=== PATIENT | male | born 1930 | race Caucasian/White ===

== ENCOUNTER → 2017-06-23 | Outpatient (CLI) | payer OTHER ==
--- NOTE | 2017-06-23 17:33 | PCVCIMAG ---
EXAM: BILATERAL LOWER EXTREMITY ARTERIAL DUPLEX INDICATION: Peripheral Arterial Disease. Leg pain. FINDINGS: Right Leg: Satisfactory arterial waveforms throughout the common/profunda/superficial femoral, popliteal, anterior tibial, peroneal, and posterior tibial arteries. No flow limiting stenosis seen. Left Leg: Satisfactory arterial waveforms in the common femoral and profunda femoral artery. 40% stenosis distal superficial femoral artery. Previous stent mid popliteal artery remains patent. Occlusion of the distal anterior and posterior tibial arteries. The peroneal artery is patent. IMPRESSION: No flow limiting stenosis in the right lower extremity. 40% stenosis distal left superficial femoral artery is not felt to be flow-limiting. Occlusion of the distal left anterior and posterior tibial arteries. Previous left popliteal stent maintaining adequate patency. LOC:[id number]
== END | disposition home or self-care (01) ==
LOC: PCVCIMAG 11:45
PROVIDERS: ATTEND Internal Medicine Cardiovascular Disease
DX: I73.9 Peripheral vascular disease, unspecified (principal); I10 Essential (primary) hypertension; I08.0 Rheumatic disorders of both mitral and aortic valves; E78.00 Pure hypercholesterolemia, unspecified; R94.31 Abnormal electrocardiogram [ECG] [EKG]; L98.499 Non-pressure chronic ulcer of skin of other sites with unspecified severity; L97.929 Non-pressure chronic ulcer of unspecified part of left lower leg with unspecified severity; Z87.891 Personal history of nicotine dependence; Z79.899 Other long term (current) drug therapy
CPT/HCPCS: 93005; 93925; G0463

== ENCOUNTER → 2017-11-25 | Outpatient (CLI) | payer OTHER | END | disposition home or self-care (01) | LOC: PCVCIMAG 15:33 | DX: I08.3 Combined rheumatic disorders of mitral, aortic and tricuspid valves (principal); I25.10 Atherosclerotic heart disease of native coronary artery without angina pectoris; I10 Essential (primary) hypertension | CPT/HCPCS: 93306 ==

== ENCOUNTER → 2018-04-08 | Outpatient (CLI) | payer OTHER ==
--- NOTE | 2018-04-08 11:26 | PCVCIMAG ---
EXAM: AORTOILIAC DUPLEX INDICATION: Peripheral arterial disease FINDINGS: AORTA: Suprarenal aorta measures maximum diameter of 2.9 cm. There is not a fusiform infrarenal aortic aneurysm. The infrarenal aorta measures maximum diameter of 2.2 cm. No aortic stenosis. RIGHT COMMON ILIAC ARTERY: Maximum diameter is 1.1 cm. No significant stenosis. RIGHT EXTERNAL ILIAC ARTERY: No significant stenosis. LEFT COMMON ILIAC ARTERY: Maximum diameter is 1.1 cm. No significant stenosis. LEFT EXTERNAL ILIAC ARTERY: No significant stenosis. IMPRESSION: No abdominal aortic aneurysm. No aortoiliac stenosis seen. LOC:[id number]
--- NOTE | 2018-04-08 11:29 | PCVCIMAG ---
EXAM: LEFT LOWER EXTREMITY ARTERIAL DUPLEX INDICATION: Peripheral Arterial Disease. Leg pain. FINDINGS: Left Leg: Common femoral and profunda femoral arteries are patent. Superficial femoral artery and popliteal artery are patent including previous distal superficial femoral artery and upper popliteal artery stent. Occlusion of the mid/distal anterior and posterior tibial arteries. Peroneal artery is patent. IMPRESSION: Previous left superficial femoral artery and popliteal artery stent maintaining satisfactory patency. Unchanged occlusion of the mid/distal left anterior and posterior tibial arteries. No change since May 2017 study. LOC:[id number]
== END | disposition home or self-care (01) ==
LOC: PCVCIMAG 14:26
PROVIDERS: ATTEND Nuclear Medicine Nuclear Cardiology
DX: I73.9 Peripheral vascular disease, unspecified (principal)
CPT/HCPCS: 93926; 93978

== ENCOUNTER → 2018-06-15 | Outpatient (CLI) | payer OTHER ==
--- NOTE | 2018-06-15 11:46 | PCVCIMAG ---
APPROVED REPORT Study performed: 06/15/2018 11:02:51 EXAM: Comprehensive 2D, Doppler, and color-flow Echocardiogram Patient Location: Echo lab Status: routine BSA: 1.94 HR: 85 bpmBP: 138/70 mmHg Rhythm: Atrial Fibrillation Other Information Study Quality: Good Risk Factors: Cardiac Risk Factors: HTN, Hyperlipidemia Indications CAD Stent, Aortic Stenosis 2D Dimensions IVSd: 16.02 (7-11mm)LVOT Diam: 19.77 (18-24mm) LVDd: 32.29 mm PWd: 13.53 (7-11mm)Ascending Ao: 35.62 (22-36mm) LVDs: 29.54 (25-40mm) Left Atrium: 36.77 (27-40mm) Aortic Root: 29.28 mm LV Single Plane 4CH: 53.54 % LV Single Plane 2CH: 74.93 % Biplane EF: 67.1 % Volumes Left Atrial Volume (Systole) Single Plane 4CH: 54.18 mLSingle Plane 2CH: 54.44 mL LA ESV Index: 28.00 mL/m2 Aortic Valve AoV Peak Feliz.: 4.25 m/s AO Peak Gr.: 72.35 mmHgLVOT Max P.34 mmHg AO Mean Gr.: 48.44 mmHgLVOT Mean P.01 mmHg AO V2 Mean: 3.43 m/sLVOT Max V: 0.91 m/s AO V2 VTI: 100.77 cmLVOT Mean V: 0.68 m/s PAM (VTI): 0.60 [id number] V1 VTI: 19.70 cm PAM Vmax: 0.66 cm2 SV (LVOT): 60.45 mL Mitral Valve MV Peak Gr.: 12.26 mmHg MV Mean Gr.: 5.46 mmHg MV Decel. Time: 280.90 ms MV Max Feliz.: 1.75 m/s MV Mean Feliz.: 1.09 m/s MV VTI: 523.18 mm MVA VTI: 115.54 mm2 Pulmonary Valve PV Peak Gr.: 2.37 mmHg Tricuspid Valve TR Peak Feliz.: 3.50 m/s TR Peak Gr.: 49.05 mmHg Left Ventricle The left ventricle is normal size. There is normal LV segmental wall motion. Mild concentric left ventricular hypertrophy. Left ventricular systolic function is normal. The left ventricular ejection fraction is within the normal range. LVEF is 60-65%. Grade I - abnormal relaxation pattern. Right Ventricle The right ventricle is normal size. The right ventricular systolic function is normal. Atria The left atrium size is normal. The right atrium size is normal. Aortic Valve Aortic valve is severely calcified. Peak gradient is 73mmHg. Mean gradient is 49mmHg. Aortic valve area is calculated at .7cm2. No aortic regurgitation is present. Severe aortic stenosis. Mitral Valve Severe mitral annular calcification. Mild mitral regurgitation. No evidence of mitral valve stenosis. Tricuspid Valve The tricuspid valve is normal in structure. Trace tricuspid regurgitation. Pulmonary artery pressure is 56immHg. Pulmonic Valve The pulmonary valve is normal in structure. There is no pulmonic valvular regurgitation. Great Vessels The aortic root is normal in size. IVC is normal in size and collapses >50% with inspiration. Pericardium There is no pericardial effusion. <Conclusion> The left ventricle is normal size. Mild concentric left ventricular hypertrophy. LVEF is 60-65%. Grade I - abnormal relaxation pattern. The right ventricle is normal size. The left atrium size is normal. Aortic valve is severely calcified. Peak gradient is 73mmHg. Mean gradient is 49mmHg. Aortic valve area is calculated at .7cm2. Severe aortic stenosis. Mild mitral regurgitation. Severe mitral annular calcification. Mild mitral regurgitation. No evidence of mitral valve stenosis. Trace tricuspid regurgitation. Pulmonary artery pressure is 56immHg. The aortic root is normal in size. There is no pericardial effusion.
== END | disposition home or self-care (01) ==
LOC: PCVCIMAG 10:39
PROVIDERS: ATTEND Internal Medicine Cardiovascular Disease
DX: I05.1 Rheumatic mitral insufficiency (principal); I25.10 Atherosclerotic heart disease of native coronary artery without angina pectoris; I35.0 Nonrheumatic aortic (valve) stenosis; I10 Essential (primary) hypertension; E78.5 Hyperlipidemia, unspecified
CPT/HCPCS: 93306

== ENCOUNTER → 2018-10-10 | Outpatient (CLI) | payer OTHER ==
--- NOTE | 2018-10-10 12:17 | PCVCIMAG ---
APPROVED REPORT Laterality: Bilateral Indications Stenosis Doppler Spectral Velocity Analysis PSV / EDVPSV / EDV ECA (R) 60 / 9 cm/sECA (L) 73 / 17 cm/s dICA (R) 57 / 5 cm/sdICA (L) 58 / 12 cm/s Frank (R) 102 / 14 cm/smICA (L) 85 / 17 cm/s pICA (R) 114 / 22 cm/spICA (L) 46 / 12 cm/s Bulb (R) 66 / 15 cm/sBulb (L) 35 / 9 cm/s dCCA (R) 33 / 6 cm/sdCCA (L) 41 / 11 cm/s mCCA (R) 41 / 0 cm/smCCA (L) 42 / 10 cm/s Vert (R) 18 / 5 cm/sVert (L) 103 / 19 cm/s ICA/CCA 3.45 ICA/CCA 2.07 Findings The right carotid bulb has moderately severe calcified plaque. The right proximal internal carotid artery shows 40-50% stenosis. The right common carotid artery shows no significant stenosis. The right external carotid artery shows no significant stenosis. The left carotid bulb has moderate calcified plaque. The left proximal internal carotid artery shows <40% stenosis. The left common carotid artery shows no significant stenosis. The left external carotid artery shows no significant stenosis. Conclusion 1. Right internal carotid artery stenosis (40-50%). 2. Left internal carotid artery stenosis (<40%) 3. Antegrade vertebral flow
--- NOTE | 2018-10-10 13:08 | PCVCIMAG ---
EXAM: BILATERAL LOWER EXTREMITY ARTERIAL DUPLEX INDICATION: Peripheral Arterial Disease. Leg pain. FINDINGS: Right Leg: Common femoral artery is patent. Profunda femoral artery is patent. Mild stenosis proximal/mid superficial femoral artery. Popliteal artery is patent. Occlusion of the proximal posterior tibial artery and distal anterior tibial artery. Peroneal artery is patent. Left Leg: Common femoral and profunda femoral arteries are patent. Superficial femoral and popped artery maintaining satisfactory patency. Previous stent distal superficial femoral artery and upper popliteal artery maintaining adequate patency. Occlusion of the mid/distal anterior and posterior tibial arteries. Peroneal artery is patent. IMPRESSION: Mild stenosis [id number] right superficial femoral artery. Unchanged occlusion proximal right posterior tibial artery distal right anterior tibial artery. Previous distal left superficial femoral artery and proximal/mid popliteal artery stent maintaining adequate patency. Distal left anterior and posterior tibial artery occlusions. LOC:[id number]
== END | disposition home or self-care (01) ==
LOC: PCVCIMAG 10:56
PROVIDERS: ATTEND Nuclear Medicine Nuclear Cardiology
DX: I65.23 Occlusion and stenosis of bilateral carotid arteries (principal); I73.9 Peripheral vascular disease, unspecified; I77.9 Disorder of arteries and arterioles, unspecified
CPT/HCPCS: 93880; 93925

== ENCOUNTER → 2019-01-17 | Outpatient (CLI) | payer OTHER ==
--- NOTE | 2019-01-17 18:35 | PCVCIMAG ---
EXAM: BILATERAL LOWER EXTREMITY ARTERIAL DUPLEX INDICATION: Peripheral Arterial Disease. Leg pain. FINDINGS: Right Leg: Common femoral and profunda femoral arteries are patent. 40-50% stenosis proximal [place] superficial femoral artery. Popliteal artery is patent. Anterior tibial, peroneal, and posterior tibial arteries are patent. Left Leg: Common femoral profunda femoral arteries are patent. Superficial femoral and popliteal arteries are patent. Previous stent distal superficial femoral artery is patent. Occlusion of the distal anterior and posterior tibial arteries. Peroneal artery is patent until its distal portion where it becomes diminutive in size. IMPRESSION: 40-50% stenosis proximal [place] right superficial femoral artery. Occlusion of the distal left anterior and posterior tibial arteries with distal left peroneal artery being diminutive in size. Previous distal left superficial femoral artery stent maintaining satisfactory patency. LOC:[id number]
== END | disposition home or self-care (01) ==
LOC: PCVCIMAG 14:47
PROVIDERS: ATTEND Family Medicine
DX: I73.9 Peripheral vascular disease, unspecified (principal)
CPT/HCPCS: 93925

== ENCOUNTER → 2019-07-24 | Outpatient (CLI) | payer OTHER ==
--- NOTE | 2019-07-24 13:20 | PCVCIMAG ---
EXAM: BILATERAL LOWER EXTREMITY ARTERIAL DUPLEX INDICATION: Peripheral Arterial Disease. Leg pain. FINDINGS: Right Leg: Common femoral and profunda femoral arteries are patent. Increased systolic velocities are 52 cm/s mid [place] superficial femoral artery consistent with 50-60% stenosis. Popliteal artery shows 40% stenosis in its midportion not felt be flow-limiting. The anterior tibial, peroneal, and posterior tibial arteries are patent. Left Leg: Common femoral profunda femoral arteries are patent. Superficial femoral and popliteal artery are patent including previous stent distal superficial femoral artery and upper popliteal artery. Unchanged occlusion of the mid/distal anterior and posterior tibial arteries. Peroneal artery is patent. IMPRESSION: 50-60% stenosis mid [place] right superficial femoral artery showing mild progression since December 2015 study. Previous left distal superficial femoral artery/upper popliteal artery stent maintaining satisfactory patency. Unchanged occlusion mid/distal left anterior and posterior tibial arteries. LOC:[id number]
== END | disposition home or self-care (01) ==
LOC: PCVCIMAG 10:33
PROVIDERS: ATTEND Emergency Medicine
DX: I70.202 Unspecified atherosclerosis of native arteries of extremities, left leg (principal)
CPT/HCPCS: 93925